=== PATIENT | female | born 1950 | race Caucasian/White ===

== ENCOUNTER → 2017-08-23 | Outpatient (CLI) | payer MEDICARE ==
[2016-06-02 09:15] VITALS: BMI 32.4
[~2017-08-23] MED LIST: ALB18R INH; BUDE10.25 IH; CALC-947; CALC500T6 PO; CEPH500T7 PO; CHOL100052 PO; CIPR-214 PO; D-3; DIME240C2 PO; DOCU-202 PO; ESTR42.5 VG; FAMO20TA28 PO; FENO160T11 PO; FISH OIL1 CAP; FLAX100041 PO; GADOBENATE 529MG/1ML 15ML VIAL IVP ONE; HCTZ25; HYDR-2966 PO; HYDR-318 PO; LEV25; LEVO25TA61 PO; LEVO75TA73 PO; LISI-368; LISI20TA29 PO; MEPE100T3 PO; MULT-885 PO; MULT1TAB; NS 0.9% 20 ML SDV 40 ML ONE; OMEG10007 PO; OMEG500C7 PO; ONDA4TAB PO; PER PO; PHEN200T32 PO; [UNRECOGNIZED DRUG - CODE]; [UNRECOGNIZED DRUG - OTHER]
--- NOTE | 2017-08-23 11:39 | RADIOLOGY IMAGING REPORT ---
FACILITY: [facility] PATIENT NAME: Ayde Dorantes : 1950 MR: [id number] V: [id number] EXAM DATE: ORDERING PHYSICIAN: ELIZABETH WINSLOW TECHNOLOGIST: Location: [facility] Patient: Ayde Dorantes : 1950 Visit/Account:[id number] Date of Sevice: 08/23/2017 EXAMINATION: MRI abdomen without IV contrast MRI abdomen with IV contrast MRCP 08/23/2017 7:23 AM HISTORY: See Dx TECHNIQUE: Multiplanar multisequence imaging of the abdomen was performed including thin slice heavil y T2-weighted MRCP sequencing. 3-D imaging was performed according to protocols developed by the rad iologists and the facility radiology staff. Staff [employer] Officer images are stored on PACS. Contrast: 20 mL of IV MultiHance. COMPARISON STUDIES: 08/16/2016 FINDINGS: Gallbladder bile ducts: Prior cholecystectomy. CBD is stable measuring just over 6 mm. No visible choledocholithiasis. Liver: Small cysts peripherally in both lobes. Pancreas: Multiloculated cystic lesion along the body of the pancreas measures 1.7 cm transversely by 1.3 cm AP by 1.3 cm craniocaudal, stable. This has internal septation but no substantial enhancing solid component. Duct distal to this cystic mass is not dilated. There are a few scattered tiny cys tic foci elsewhere in the pancreas. Spleen: Tiny benign-appearing nodule under the lateral left hemidiaphragm (series 23, image 29) is un changed and potentially simply an incidental accessory splenule. Adrenal glands: negative Kidneys / retroperitoneum: negative Bowel / peritoneum / mesenteries: negative Vessels: negative Musculoskeletal / Body wall: Degenerative changes in the spine with mild levoscoliotic curvature. Lymph node assessment: negative Lower chest: negative IMPRESSION: 1.7 cm cystic lesion in the pancreatic body is stable from previous. Additional tiny cys tic foci elsewhere in the pancreas are unchanged. 1 year follow-up is recommended. Report Dictated By: Yasmany Ventura MD at 08/23/2017 10:33 AM Report E-Signed By: Yasmany Ventura MD at 08/23/2017 11:36 AM WSN:[email or web address]
== END ==
LOC: MRI 01:56
PROVIDERS: ATTEND Surgery
DX: Z01.812 Encounter for preprocedural laboratory examination (principal); I10 Essential (primary) hypertension; K86.2 Cyst of pancreas
CPT/HCPCS: 36415; 74183; 82565; A9577; J7050

== ENCOUNTER → 2018-06-04 | Outpatient (CLI) | payer MEDICARE ==
[2016-06-02 09:15] VITALS: BMI 32.4
[~2018-06-04] MED LIST changes: -GADOBENATE 529MG/1ML 15ML VIAL IVP ONE; -NS 0.9% 20 ML SDV 40 ML ONE
--- NOTE | 2018-06-04 16:09 | RADIOLOGY IMAGING REPORT ---
[place] [facility] [place] NAME: Ayde Dorantes : 1950 MR: [id number] V: [id number] EXAM DATE: [id number] ORDERING PHYSICIAN: WYATT TOM TECHNOLOGIST: Location: [facility] Patient: Ayde Dorantes : 1950 Visit/Account:[id number] Date of Sevice: 06/04/2018 DEXA Scan Clinical history: Screening. Comparison: A 1017. LUMBAR SPINE: The bone mineral density (BMD) measured from L1-L4 correlates with a Z-score of -0.8 and a T-score of -2.3 which is osteopenic as defined by the World Health Organization. The cor responding risk of fracture in the lumbar spine is moderately increased compared with a young adult r eference population. This value has decreased by 1.2 % since the prior study. More than 5% change i s considered significant. HIP: Bone mineral density (BMD) measured in the Left Total Hip region correlates with a Z-score of 0.1 and a T-score of -1.2. The T-score of the femoral neck is -2.3. The lower of the two T-scores is osteopenic as defined by the World Health Organization. The corresponding risk of fracture in the hip is moderately increased compared with a young adult r eference population. This value has decreased by 2.7 % since the prior study. More than 5% change i s considered significant. Bone mineral density (BMD) measured in the Left Femoral Neck region measures 0.8 x 5 g/cm?. IMPRESSION: 1. Lumbar spine: Osteopenic. There has been no significant change in the bone mineral density sinc e the previous exam. 2. Left Total Hip: Osteopenic. There has been no significant change in the bone mineral density sin ce the previous exam. The next DEXA scan of this patient should include the following sites: L1-L4 and Left hip. FRAX? WHO Fracture Risk Assessment Tool link: <http://www.shef.ac.uk/FRAX/tool.jsp?locationValue=9> PLEASE NOTE: 1) The World Health Organization defines low BMD as follows: T-score Normal > -1 Osteopenia < -1 and > -2.5 Osteoporosis < -2.5 without fractures Established osteoporosis < -2.5 with fractures 2) In general, you may wish to consider: Diagnosis Treatment Follow-up DEXA Normal BMD Prevention 2-3 years Osteopenia Prevention/therapy 1-2 years Osteoporosis Therapy Yearly 3) Fracture risk estimated from the T-score is more accurate for vertebral fractures (often spontane ous) than for hip fractures. Report Dictated By: Pepe Dowd MD at 06/04/2018 4:01 PM Report E-Signed By: Pepe Dowd MD at 06/04/2018 4:04 PM WSN:[email or web address]
--- NOTE | 2018-06-05 08:31 | RADIOLOGY IMAGING REPORT ---
FACILITY: [facility] PATIENT NAME: LISY JEFFRIES : [id number] MR: [id number] V: [id number] EXAM DATE: [id number] ORDERING PHYSICIAN: WYATT TOM TECHNOLOGIST: Ca Mix PROCEDURE:BILATERAL DIGITAL SCREENING MAMMOGRAM WITH CAD ASSISTED INTERPRETATION & 3D TOMOSYNTHESIS COMPARISON:Prior mammograms 12/10/15, 12/03/14, 11/12/13, 11/27/12, 11/09/11. INDICATIONS:SCREENING FINDINGS: The breasts are almost entirely fatty. There is a nodular density in the medial inferior portion of the Right breast in the anterior depth for which Right breast Ultrasound is recommended. There is an additional nodular density in the medial portion of the Left breast on the Left CC view appears to be just above the mid nipple line on the Left MLO view for which Left breast Ultrasound is recommended. DIAGNOSTIC CATEGORY 0--INCOMPLETE: NEED ADDITIONAL IMAGING EVALUATION. RECOMMENDATIONS: ULTRASOUND: BILATERAL BREASTS. IMPRESSION: BIRADS 0: Incomplete. Bilateral breast Ultrasound recommended as described. Dictated by: Brianne Ballesteros M.D. on 06/04/2018 at 15:23 Transcribed by: ЕЛЕНА on 06/04/2018 at 15:51 Approved by: Brianne Ballesteros M.D. on 06/05/2018 at 8:30 [facility]
== END ==
LOC: MAMO 01:13
PROVIDERS: ATTEND Nurse Practitioner Psychiatric/Mental Health
DX: Z13.820 Encounter for screening for osteoporosis (principal); Z12.31 Encounter for screening mammogram for malignant neoplasm of breast; M85.89 Other specified disorders of bone density and structure, multiple sites; R92.8 Other abnormal and inconclusive findings on diagnostic imaging of breast
CPT/HCPCS: 77063; 77067; 77080

== ENCOUNTER → 2018-06-24 | Outpatient (CLI) | payer MEDICARE ==
[2016-06-02 09:15] VITALS: BMI 32.4
--- NOTE | 2018-06-25 10:40 | RADIOLOGY IMAGING REPORT ---
[place] [facility] [place] NAME: LISY JEFFRIES : [id number] MR: [id number] V: [id number] EXAM DATE: ORDERING PHYSICIAN: WYATT TOM TECHNOLOGIST: Manuela Martinez RDMS PROCEDURE:BILATERAL BREAST ULTRASOUND COMPARISON:Prior mammogram 06/04/18. INDICATIONS:Further evaluation. FINDINGS: LEFT BREAST ULTRASOUND: Area scanned: 7-11 o'clock position of the Left breast. There is a well circumscribed ovoid 3.9 x 2.6 x 3.4mm hypoechoic nodule in the 10 o'clock position of the Left breast 4cm from the nipple which may account for the recent mammographic findings. RIGHT BREAST ULTRASOUND: Area scanned: 2-4 o'clock position of the Right breast. In the 2 o'clock position of the Right breast 1cm from the nipple there is a 4.5mm well circumscribed hypoechoic nodule. There is no acoustic shadowing. This may account for the recent mammographic findings. DIAGNOSTIC CATEGORY 3--PROBABLY BENIGN FINDING. RECOMMENDATIONS: SIX MONTH FOLLOW-UP DIAGNOSTIC MAMMOGRAM: BILATERAL BREASTS. SIX MONTH FOLLOW-UP ULTRASOUND: BILATERAL BREASTS. IMPRESSION: BIRADS 3: Probably benign finding. A 6 month follow-up bilateral Ultrasound and mammogram recommended to document stability of the above mentioned findings unless clinical findings warrant more immediate attention. Dictated by: Brianne Ballesteros M.D. on 06/24/2018 at 17:26 Transcribed by: ЕЛЕНА on 06/25/2018 at 9:45 Approved by: Brianne Ballesteros M.D. on 06/25/2018 at 10:39 [facility]
--- NOTE | 2018-06-25 10:40 | RADIOLOGY IMAGING REPORT ---
FACILITY: [facility] PATIENT NAME: LISY JEFFRIES : [id number] MR: [id number] V: [id number] EXAM DATE: ORDERING PHYSICIAN: WYATT TOM TECHNOLOGIST: Manuela Martinez RDMS PROCEDURE:BILATERAL BREAST ULTRASOUND COMPARISON:Prior mammogram 06/04/18. INDICATIONS:Further evaluation. FINDINGS: LEFT BREAST ULTRASOUND: Area scanned: 7-11 o'clock position of the Left breast. There is a well circumscribed ovoid 3.9 x 2.6 x 3.4mm hypoechoic nodule in the 10 o'clock position of the Left breast 4cm from the nipple which may account for the recent mammographic findings. RIGHT BREAST ULTRASOUND: Area scanned: 2-4 o'clock position of the Right breast. In the 2 o'clock position of the Right breast 1cm from the nipple there is a 4.5mm well circumscribed hypoechoic nodule. There is no acoustic shadowing. This may account for the recent mammographic findings. DIAGNOSTIC CATEGORY 3--PROBABLY BENIGN FINDING. RECOMMENDATIONS: SIX MONTH FOLLOW-UP DIAGNOSTIC MAMMOGRAM: BILATERAL BREASTS. SIX MONTH FOLLOW-UP ULTRASOUND: BILATERAL BREASTS. IMPRESSION: BIRADS 3: Probably benign finding. A 6 month follow-up bilateral Ultrasound and mammogram recommended to document stability of the above mentioned findings unless clinical findings warrant more immediate attention. Dictated by: Brianne Ballesteros M.D. on 06/24/2018 at 17:27 Transcribed by: ЕЛЕНА on 06/25/2018 at 9:46 Approved by: Brianne Ballesteros M.D. on 06/25/2018 at 10:39 [facility]
== END ==
LOC: US 02:15
PROVIDERS: ATTEND Nurse Practitioner Psychiatric/Mental Health
DX: N63.22 Unspecified lump in the left breast, upper inner quadrant (principal); N63.12 Unspecified lump in the right breast, upper inner quadrant

== ENCOUNTER → 2018-08-26 | Outpatient (CLI) | payer MEDICARE ==
[2016-06-02 09:15] VITALS: BMI 32.4
[~2018-08-26] MED LIST changes: +GADOBENATE 529MG/1ML 15ML VIAL IVP ONE; +NS(*) 0.9% 50 ML BAG 50 ML ONE
--- NOTE | 2018-08-26 11:01 | RADIOLOGY IMAGING REPORT ---
FACILITY: [facility] PATIENT NAME: Ayde Dorantes : 1950 MR: [id number] V: [id number] EXAM DATE: ORDERING PHYSICIAN: ELIZABETH WINSLOW TECHNOLOGIST: Location: [facility] Patient: Ayde Dorantes : 1950 Visit/Account:[id number] Date of Sevice: 08/26/2018 MR ABDOMEN MRCP W & W/O CONTRAST HISTORY: Follow-up pancreatic cystic lesion ADDITIONAL HISTORY: None. TECHNIQUE: Multiplanar multisequence magnetic resonance imaging of the abdomen without and with intr avenous contrast including magnetic resonance cholangiopancreatography (MRCP). CONTRAST: 15 mL of MultiHance COMPARISON: MRI abdomen 08/23/2017 FINDINGS: Liver: Subcentimeter hepatic cysts. Gallbladder: Cholecystectomy Bile ducts: Common bile duct measures 8 mm and tapers towards the ampulla without filling defect. No abnormal enhancement. Spleen: Negative. Adrenal glands: Negative. Pancreas: Stable 18 x 14 mm cystic lesion at the pancreatic body with connection to the main pancreat ic duct. Stable additional tiny subcentimeter cystic pancreatic lesions. No nodular/enhancing compo nent. Main pancreatic duct is not dilated. No acute peripancreatic inflammatory change. Kidneys: Negative. Bowel/peritoneum/mesentery: Negative Lymph nodes: Negative Bones/soft tissues: Negative Visualized lung bases: Negative Visualized pelvis: Negative Vessels: Negative Other findings: None significant IMPRESSION: 1. Stable 18 x 14 mm cystic lesion at the pancreatic body with connection to the main pancreatic shraddha t. Other stable subcentimeter cystic pancreatic lesions. No concerning features. Please refer to A CR guidelines below. INCIDENTAL PANCREATIC CYST FOLLOWUP Assuming absence of Worrisome Features/High-Risk Stigmata on imaging, clinical findings relevant to t he pancreas (including jaundice, anorexia, weight loss, palpable mass, or steatorrhea), or a relevant abnormal laboratory value (eg, elevated amylase) Follow-up imaging with Pancreas protocol CT or MRI (with and without contrast) Cyst measuring 1.5 cm - 2.5 cm WITH definitive communication to the MPD. *EUS/FNA can be performed instead of follow-up imaging 1.5 cm - 1.9 cm cyst * Reimage q 1 year x 5, then q 2 years x 2 * STOP if stable over 9 years * Interval growth (Defined as 20% increase in longest axis diameter.) * Cyst is still <= 2.5 cm * Reimage q 6 months x 4, then q 1 year x 2, then q 2 years; or EUS/FNA. * STOP if cyst <= 2.5 cm over 10 years * Cyst is >= 2.5 cm * EUS/FNA 2.0 - 2.5 cm cyst * Reimage q 6 months x 4, then q 1 year x 2, then q 2 years x 3 * STOP if stable over 10 years * Interval growth (Defined as 20% increase in longest axis diameter.) * EUS/FNA Development of worrisome features or high-risk stigmata should prompt EUS/FNA. "Worrisome Features": Cyst >3cm Thickened / enhancing cyst wall Non-enhancing mural nodule Main Pancreatic Duct caliber >7mm "High Risk Stigmata" Obstructive jaundice with cyst in head of pancreas Enhancing solid component within thee cyst Main pancreatic duct caliber >10mm in absence of obstructing lesion Reference: ACR. Management of Incidental Pancreatic Cysts: A White Paper of the ACR Incidental Findi ngs Committee JACR. Jun, 2016. [email or web address] Report Dictated By: René Acharya MD at 08/26/2018 10:44 AM Report E-Signed By: René Acharya MD at 08/26/2018 10:53 AM VALN:[email or web address]
== END ==
LOC: MRI 01:09
PROVIDERS: ATTEND Surgery
DX: K86.2 Cyst of pancreas (principal)
CPT/HCPCS: 74183; A9577; J7050